=== PATIENT | female | born 1965 | race Caucasian/White ===

== ENCOUNTER 2020-01-13 11:30 | Outpatient (CLI) | payer BC ==
--- NOTE | 2020-01-13 11:53 | RAD ---
3 views sacroiliac joints: 01/13/2020 COMPARISON: None HISTORY: Posterior pelvic and hip pain for one year FINDINGS: There is disc space narrowing with sclerotic endplate change at the lumbosacral junction. T here is no widening of the sacroiliac joints or pubic symphysis. There is minimal inferior osteophyte formation involving the sacroiliac joint on the right. No significant sacroiliac joint ero sive change present. IMPRESSION: No acute osseous abnormality.
== END 2020-01-13 11:31 | disposition home or self-care (01) ==
LOC: BICRAD 11:30
PROVIDERS: ATTEND Internal Medicine Rheumatology
DX: M46.1 Sacroiliitis, not elsewhere classified (principal)
CPT/HCPCS: 72202